=== PATIENT | female | born 1965 | race African-American/Black ===

== ENCOUNTER 2019-01-23 14:40 | Emergency (ER) | payer MEDICARE, MEDICAID ==
[~2019-01-23] VITALS: Ht 172.7 cm; Wt 70.0 kg
[2019-01-23] MEDS ORDERED: IPRATROPIUM BROMIDE (0.02%) 0.5MG/2.5ML NEB HHN STA (16:50)
[2019-01-23] MEDS ORDERED: ALBUTEROL (0.083%) 2.5MG/3ML NEB HHN STA (16:50)
[2019-01-23] MEDS ORDERED: ONDANSETRON HCL 4MG/2ML INJ IV ONE (17:00)
[2019-01-23] MEDS ORDERED: ASPIRIN 81MG TABLET PO ONE (17:00)
[2019-01-23] MEDS ORDERED: HYDROCODONE/ACETAMINOPHEN 5/325MG TABLET PO ONE (17:00)
[2019-01-23 17:48] LABS: BASOPHILS % 3.3 % (0.0-2.0); EOSINOPHILS % 2.3 % (0.0-5.0); HEMATOCRIT. 42.6 % (36.0-48.0); LYMPHOCYTES % 38.6 % (20.0-50.0); MEAN CORPUSCULAR HEMOGLOBIN 28.5 pg (28.0-32.0); MEAN CORPUSCULAR VOLUME 86.7 fL (81.0-99.0); MEAN PLATELET VOLUME 9.3 fl (7.4-10.4); MONOCYTES % 6.3 % (2.0-8.0); NEUTROPHILS % 49.5 % (40.0-76.0); PLATELET 341 x1000/uL (130-400); RED BLOOD CELL COUNT 4.91 mill/uL (4.2-5.4); RED CELL DISTRIBUTION WIDTH 14.7 % (11.6-14.6)
[2019-01-23 17:51] LABS: CHLORIDE 106 mEq/L (98-107)
[2019-01-23 18:45] VITALS: BP 139/79
[2019-01-23] MEDS ORDERED: ALBUTEROL (0.5%) 2.5MG/0.5ML NEB HHN ONE (19:00)
== END 2019-01-23 19:51 | disposition home or self-care (01) ==
LOC: ER 14:40 → CANBEDREQ 20:05
DX: J45.909 Unspecified asthma, uncomplicated (principal); J06.9 Acute upper respiratory infection, unspecified; I10 Essential (primary) hypertension; F17.210 Nicotine dependence, cigarettes, uncomplicated; Z88.0 Allergy status to penicillin
CPT/HCPCS: 36415; 71045; 80053; 83880; 84484; 85025; 93005; 94640; 96374; 99284; J2405; J7611

== ENCOUNTER 2025-06-04 13:24 | Emergency (ER) | payer MEDICARE, MEDICAID ==
[~2025-06-04] VITALS: Ht 177.8 cm; Wt 68.0 kg
[2025-06-04 13:25] VITALS: O2SAT 99
[2025-06-04] MEDS: METOCLOPRAMIDE HCL 10MG/2ML VIAL IV ONE (14:38)
[2025-06-04] MEDS: ACETAMINOPHEN 500MG TABLET PO ONE (14:39)
[2025-06-04 15:02] LABS: BASOPHILS % 0.6 % (0.0-2.0); EOSINOPHILS % 1.1 % (0.0-5.0); HEMATOCRIT. 36.8 % (36.0-48.0); HEMOGLOBIN. 11.7 g/dL (12.0-16.0); LYMPHOCYTES % 30.6 % (20.0-50.0); MEAN PLATELET VOLUME 8.2 fl (7.4-10.4); MONOCYTES % 9.9 % (2.0-8.0); NEUTROPHILS % 57.8 % (40.0-76.0); PLATELET 283 x1000/uL (130-400); RED BLOOD CELL COUNT 4.31 mill/uL (4.2-5.4); RED CELL DISTRIBUTION WIDTH 18.6 % (11.6-14.6)
[2025-06-04 15:22] LABS: CREATININE 0.6 mg/dL (0.6-1.0); UREA NITROGEN BLOOD 6 mg/dL (9-23)
[2025-06-04 15:23] LABS: TROPONIN I HIGH SENSITIVITY 5 ng/L (3.0-34)
[2025-06-04 15:24] LABS: ASPARTATE AMINOTRANSFERASE 27 IU/L (<34); BILIRUBIN DIRECT < 0.1 mg/dL (<=3.0); BILIRUBIN TOTAL 0.2 mg/dL (0.1-1.0); PROTEIN TOTAL 7.2 g/dL (6.0-8.3)
[2025-06-04 16:57] LABS: TROPONIN I HIGH SENSITIVITY 9 ng/L (3.0-34)
[2025-06-04 19:46] VITALS: BP 132/70; PULSE 73; RESP 11; TEMP 36.6; O2SAT 98
== END 2025-06-04 19:53 | disposition home or self-care (01) ==
LOC: ER 13:46
DX: R51.9 Headache, unspecified (principal); R06.02 Shortness of breath; F19.10 Other psychoactive substance abuse, uncomplicated; I10 Essential (primary) hypertension; Z59.00 Homelessness unspecified; Z85.118 Personal history of other malignant neoplasm of bronchus and lung; Z86.73 Personal history of transient ischemic attack (TIA), and cerebral infarction without residual deficits; Z88.0 Allergy status to penicillin
CPT/HCPCS: 99285; 96374; 70450; 71045; 80076; 80048; 83880; 85025; 84484; 36415; J2765